=== PATIENT | female | born 2000 | race Caucasian/White ===

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

== ENCOUNTER → 2023-09-17 | Outpatient (CLI) | payer OTHER ==
[2023-09-17 13:32] LABS: Creatinine Urine 65.7 mg/dL (27.00-270.00); Microalbumin, Urine Quant. 5.03 mg/L (0.000-20.000); Protein, Urine Quantitative 7.3 mg/dL (0.0-11.9)
== END | disposition home or self-care (01) ==
LOC: LAB 10:05 → LAB SHORT 10:05 → LAB FUT 09-01 10:25
PROVIDERS: Internal Medicine Nephrology
DX: N18.2 Chronic kidney disease, stage 2 (mild) (principal); D63.1 Anemia in chronic kidney disease; D50.9 Iron deficiency anemia, unspecified; D52.8 Other folate deficiency anemias; D51.8 Other vitamin B12 deficiency anemias; R94.6 Abnormal results of thyroid function studies; R94.5 Abnormal results of liver function studies; R76.9 Abnormal immunological finding in serum, unspecified; R32 Unspecified urinary incontinence; N25.81 Secondary hyperparathyroidism of renal origin; E55.9 Vitamin D deficiency, unspecified; E78.00 Pure hypercholesterolemia, unspecified
CPT/HCPCS: 81050; 82043; 82570; 84156

== ENCOUNTER → 2024-05-18 | Outpatient (CLI) | payer OTHER ==
[2024-05-18 14:41] LABS: Protein, Urine Quantitative 5.7 mg/dL (0.0-11.9)
[2024-05-18 14:44] LABS: Microalbumin, Urine Quant. <5.000 mg/L (0.000-20.000)
== END ==
LOC: LAB 12:11 → LAB SHORT 12:11 → LAB FUT 05-13 12:35
PROVIDERS: Internal Medicine Nephrology
DX: N18.2 Chronic kidney disease, stage 2 (mild) (principal); D63.1 Anemia in chronic kidney disease; N25.81 Secondary hyperparathyroidism of renal origin; E55.9 Vitamin D deficiency, unspecified; R76.9 Abnormal immunological finding in serum, unspecified; R94.6 Abnormal results of thyroid function studies
CPT/HCPCS: 81050; 82043; 82570; 84156

== ENCOUNTER → 2024-11-12 | Outpatient (CLI) | payer OTHER ==
[2024-11-12 19:40] LABS: Protein, Urine Quantitative 6.7 mg/dL (0.0-11.9)
[2024-11-12 19:57] LABS: Microalbumin, Urine Quant. <5.000 mg/L (0.000-20.000)
== END ==
LOC: LAB 08:55 → LAB SHORT 08:55 → LAB FUT 11-04 13:55
PROVIDERS: Internal Medicine Nephrology
DX: N18.2 Chronic kidney disease, stage 2 (mild) (principal); D63.1 Anemia in chronic kidney disease; N25.81 Secondary hyperparathyroidism of renal origin; E55.9 Vitamin D deficiency, unspecified; E78.00 Pure hypercholesterolemia, unspecified; R76.9 Abnormal immunological finding in serum, unspecified; R94.5 Abnormal results of liver function studies; R94.6 Abnormal results of thyroid function studies
CPT/HCPCS: 81050; 82043; 82570; 84156

== ENCOUNTER → 2024-12-22 | Outpatient (CLI) | payer OTHER | LOC: LAB SHORT 17:28 → LAB 17:28 | PROVIDERS: Registered Nurse | DX: Z01.419 Encounter for gynecological examination (general) (routine) without abnormal findings (principal) | CPT/HCPCS: 87624; G0145 ==